=== PATIENT | male | born 1970 | race Caucasian/White ===

== ENCOUNTER 2016-10-07 13:55 | Emergency (ER) | payer BC ==
--- NOTE | 2016-10-07 15:10 | EDM.PDOC ---
ED HPI GENERAL MEDICAL PROBLEM - General Chief Complaint: ENT Problem Stated Complaint: [id number] SINUS INFECTION Time Seen by Provider: 10/07/16 15:03 Source of Information: Reports: Patient, RN Notes Reviewed - History of Present Illness INITIAL COMMENTS - FREE TEXT/NARRATIVE: patient is a 46-year-old male who comes in today with a fever complaining of sinus pain and pressure over the last 3 days that has gotten worse in nature. He denies cough or congestion he does report having a sore throat as well. He states he believes the fever started yesterday he states his pain is mild and has no exacerbating or remitting factors Onset: Gradual Duration: Day(s): Location: Reports: Face, Radiates to (jaw and pressure under eyes and frontal sinus pressure) Quality: Reports: Ache, Dull Severity: Mild Bilateral Face Pain Score (Numeric/FACES): 7 - Related Data Allergies Allergy/AdvReac Type Severity Reaction Status Date / Time clarithromycin [From Biaxin] Allergy Hives Verified 10/07/16 14:35 Penicillins Allergy Hives Verified 10/07/16 14:35 Home Meds: Home Meds Amitriptyline [Elavil] 10 mg PO DAILY 09/15/15 [History] Simvastatin [Simvastatin] 20 mg PO DAILY 09/15/15 [History] Venlafaxine [Effexor] 25 mg PO DAILY 09/15/15 [History] Past Medical History - Past Health History Medical/Surgical History: Denies Medical/Surgical History Social & Family History - Family History Family Medical History: Noncontributory - Tobacco Use Smoking Status *Q: Never Smoker Second Hand Smoke Exposure: No - Caffeine Use Caffeine Use: Reports: Coffee, Soda - Alcohol Use Days Per Week of Alcohol Use: 2 Number of Drinks Per Day: 2 Total Drinks Per Week: 4 - Recreational Drug Use Recreational Drug Use: No ED ROS ENT - Review of Systems Review Of Systems: See Below ED EXAM, ENT - Physical Exam Exam: See Below Exam Limited By: No Limitations General Appearance: Alert, WD/WN, No Apparent Distress Eye Exam: Bilateral Eye: PERRL Ears: Normal External Exam, Normal Canal, Hearing Grossly Normal, Normal TMs Nose: Normal Inspection, Normal Mucousa, No Blood Mouth/Throat: Normal Inspection, Normal Gums, Normal Lips, Normal Teeth, Pharyngeal Erythema. No: Dental Abcess, Dental Pain, Dental Tenderness, Drooling, Muffled Voice, Uvular Deviation, Uvular Edema Head: Atraumatic, Normocephalic, Sinus Tenderness, Other (tenderness over the frontal ethmoid and maxillary sinuses) Neck: Normal Inspection, Supple, Non-Tender, Full Range of Motion Respiratory/Chest: No Respiratory Distress, Lungs Clear, Normal Breath Sounds, No Accessory Muscle Use, Chest Non-Tender Cardiovascular: Normal Peripheral Pulses, Regular Rate, Rhythm, No Edema, No Gallop, No JVD, No Murmur, No Rub Neurological: Alert, Oriented, CN II-XII Intact, Normal Cognition, Normal Gait, Normal Reflexes, No Motor/Sensory Deficits Skin: Warm, Dry, Intact, Normal Color, No Rash Course - Vital Signs Last Recorded V/S: Last Vital Signs Temp 102.3 F H 10/07/16 15:33 Pulse 85 10/07/16 14:37 Resp 21 H 10/07/16 14:37 BP 162/95 H 10/07/16 14:37 Pulse Ox 99 10/07/16 14:37 - Orders/Labs/Meds Orders: Active Orders 24 hr Category Date Time Status CULTURE STREP A CONFIRMATION [RM] Stat Lab 10/07/16 15:08 Results STREP SCRN A RAPID W CULT CONF [RM] Stat Lab 10/07/16 15:08 Results Meds: Medications Discontinued Medications Generic Name Dose Route Start Last Admin Trade Name Arvind PRN Reason Stop Dose Admin Ibuprofen 800 mg 10/07/16 15:29 10/07/16 15:33 Motrin PO 10/07/16 15:30 800 mg ONETIME ONE Administration Departure - Departure Time of Disposition: 15:45 Disposition: Home, Self-Care 01 Condition: good Clinical Impression: Sinusitis Qualifiers: Sinusitis location: maxillary Chronicity: acute Recurrence: not specified as recurrent Qualified Code(s): J01.00 - Acute maxillary sinusitis, unspecified Fever Qualifiers: Fever type: unspecified Qualified Code(s): R50.9 - Fever, unspecified - Discharge Information Instructions: Sinusitis, Adult, [id number], Fever, Adult, [id number] Forms: ED Department Discharge Additional Instructions: Discharge diagnosis Fever Sinusitis Push clear liquids Take antibiotic until gone Use Tylenol Motrin as needed for fever Followup with your primary care provider if not improving in 24-48 hour Return for increased pain nausea vomiting difficulty breathing or swallowing - My Orders Last 24 Hours: My Active Orders 10/07/16 15:08 CULTURE STREP A CONFIRMATION [RM] Stat STREP SCRN A RAPID W CULT CONF [] Stat - Assessment/Plan Last 24 Hours: My Active Orders 10/07/16 15:08 CULTURE STREP A CONFIRMATION [] Stat STREP SCRN A RAPID W CULT CONF [] Stat
[2016-10-07] MEDS ORDERED: Ibuprofen 800 MG Tab PO ONE (15:29)
[2016-10-07 15:52] VITALS: BP 139/84
== END 2016-10-07 15:52 | disposition home or self-care (01) ==
LOC: DL.ED 13:55
DX: J01.00 Acute maxillary sinusitis, unspecified (principal); Z88.1 Allergy status to other antibiotic agents; Z88.0 Allergy status to penicillin; Z79.899 Other long term (current) drug therapy
CPT/HCPCS: 87081; 87430; 99283; A9270

== ENCOUNTER 2017-01-18 10:32 | Emergency (ER) | payer BC ==
--- NOTE | 2017-01-18 10:34 | EDM.PDOC ---
ED HPI GENERAL MEDICAL PROBLEM - General Chief Complaint: General Stated Complaint: COLD Time Seen by Provider: 01/18/17 11:38 Source of Information: Reports: Patient, RN, RN Notes Reviewed History Limitations: Reports: No Limitations - History of Present Illness INITIAL COMMENTS - FREE TEXT/NARRATIVE: Patient states cough/sore throat since the beginning of the week. Possible fever and chills early this week. No recent SOB or chest pain. 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 No sputum production. Location: Reports: Chest Quality: Reports: Ache Severity: Mild Improves with: Reports: None Worsens with: Reports: None Associated Symptoms: Reports: No Other Symptoms Throat Pain Score (Numeric/FACES): 5 - Related Data Allergies Allergy/AdvReac Type Severity Reaction Status Date / Time clarithromycin [From Biaxin] Allergy Hives Verified 01/18/17 10:44 Penicillins Allergy Hives Verified 01/18/17 10:44 Home Meds: Home Meds Amitriptyline [Elavil] 10 mg PO DAILY 09/15/15 [History] Simvastatin [Simvastatin] 20 mg PO DAILY 09/15/15 [History] ClonazePAM [KlonoPIN] 0.5 mg PO DAILY PRN 01/18/17 [History] Escitalopram Oxalate [Escitalopram Oxalate] 20 mg PO DAILY 01/18/17 [History] Past Medical History - Past Health History Medical/Surgical History: Denies Medical/Surgical History Social & Family History - Family History Family Medical History: Noncontributory - Tobacco Use Smoking Status *Q: Never Smoker Second Hand Smoke Exposure: No - Caffeine Use Caffeine Use: Reports: Coffee, Soda - Alcohol Use Days Per Week of Alcohol Use: 2 Number of Drinks Per Day: 2 Total Drinks Per Week: 4 - Recreational Drug Use Recreational Drug Use: No ED ROS GENERAL - Review of Systems Review Of Systems: ROS reveals no pertinent complaints other than HPI. ED EXAM, GENERAL - Physical Exam Exam: See Below Exam Limited By: No Limitations General Appearance: Alert, WD/WN, No Apparent Distress Eye Exam: Bilateral Eye: Normal Inspection Ears: Normal External Exam, Normal Canal, Hearing Grossly Normal, Normal TMs Nose: Normal Inspection, Normal Mucosa, No Blood Throat/Mouth: Normal Inspection, Normal Lips, Normal Teeth, Normal Gums, Normal Oropharynx, Normal Voice, No Airway Compromise Head: Atraumatic, Normocephalic Neck: Normal Inspection, Supple, Non-Tender, Full Range of Motion Respiratory/Chest: No Respiratory Distress, Lungs Clear, Normal Breath Sounds, No Accessory Muscle Use, Chest Non-Tender Cardiovascular: Normal Peripheral Pulses, Regular Rate, Rhythm, No Edema, No Gallop, No JVD, No Murmur, No Rub GI/Abdominal: Normal Bowel Sounds, Soft, Non-Tender, No Organomegaly, No Distention, No Abnormal Bruit, No Mass (Male) Exam: Deferred Rectal (Males) Exam: Deferred Back Exam: Normal Inspection, Full Range of Motion, NT Extremities: Normal Inspection, Normal Range of Motion, Non-Tender, Normal Capillary Refill, No Pedal Edema Neurological: Alert, Oriented, CN II-XII Intact, Normal Cognition, Normal Gait, Normal Reflexes, No Motor/Sensory Deficits Psychiatric: Normal Affect, Normal Mood Skin Exam: Warm, Dry, Intact, Normal Color, No Rash Lymphatic: Other (+2 cervical submandibular) Course - Vital Signs Last Recorded V/S: Last Vital Signs Temp 98.4 F 01/18/17 10:39 Pulse 112 H 01/18/17 10:39 Resp 16 01/18/17 10:39 BP 140/96 H 01/18/17 10:39 Pulse Ox 96 01/18/17 10:39 - Orders/Labs/Meds Orders: Active Orders 24 hr Category Date Time Status CULTURE STREP A CONFIRMATION [RM] Stat Lab 01/18/17 11:40 Results STREP SCRN A RAPID W CULT CONF [] Stat Lab 01/18/17 11:40 Results Rapid strep: Negative. Departure - Departure Time of Disposition: 11:57 Disposition: Home, Self-Care 01 Condition: Good Clinical Impression: Upper respiratory infection Qualifiers: URI type: unspecified viral URI Qualified Code(s): J06.9 - Acute upper respiratory infection, unspecified - Discharge Information Instructions: Upper Respiratory Infection, Adult, [id number] Forms: ED Department Discharge Additional Instructions: Use over the counter decongestant/cough combination of choice, as directed on packaging. Follow up in the clinic this week if fever and chills, or no improvement. Drink plenty of fluids. Rest. - My Orders Last 24 Hours: My Active Orders 01/18/17 11:40 CULTURE STREP A CONFIRMATION [RM] Stat STREP SCRN A RAPID W CULT CONF [RM] Stat - Assessment/Plan Last 24 Hours: My Active Orders 01/18/17 11:40 CULTURE STREP A CONFIRMATION [RM] Stat STREP SCRN A RAPID W CULT CONF [RM] Stat
[2017-01-18 10:44] VITALS: BP 140/96
== END 2017-01-18 12:13 | disposition home or self-care (01) ==
LOC: DL.ED 10:32
DX: J06.9 Acute upper respiratory infection, unspecified (principal); Z79.899 Other long term (current) drug therapy; Z88.0 Allergy status to penicillin; Z88.1 Allergy status to other antibiotic agents
CPT/HCPCS: 87081; 87430; 99284

== ENCOUNTER 2017-05-31 13:00 | Emergency (ER) | payer BC ==
[2017-05-31 15:23] VITALS: BP 145/97
--- NOTE | 2017-05-31 20:25 | EDM.PDOC ---
Scribed by Brandi Moreno 05/31/17 1541 for Chela Franco NP ED HPI GENERAL MEDICAL PROBLEM - General Chief Complaint: ENT Problem Stated Complaint: [id number] SORE THROAT Time Seen by Provider: 05/31/17 15:30 Source of Information: Reports: Patient, RN, RN Notes Reviewed History Limitations: Reports: No Limitations - History of Present Illness INITIAL COMMENTS - FREE TEXT/NARRATIVE: Patient presented to ER with complaint of sore throat. It has been sore X1 week- -Thursday. He has no fever, chills, nausea, vomiting, diarrhea, joint and body aches, chest pain, shortness of breath, cough and congestion. Duration: Getting Worse Location: Reports: Other (throat) Quality: Reports: Ache Severity: Moderate Improves with: Reports: None Worsens with: Reports: None Associated Symptoms: Reports: No Other Symptoms Throat Pain Score (Numeric/FACES): 6 - Related Data Allergies Allergy/AdvReac Type Severity Reaction Status Date / Time clarithromycin [From Biaxin] Allergy Hives Verified 05/31/17 14:09 Penicillins Allergy Hives Verified 05/31/17 14:09 Home Meds: Home Meds Amitriptyline [Elavil] 75 mg PO DAILY 09/15/15 [History] Simvastatin [Simvastatin] 20 mg PO DAILY 09/15/15 [History] ClonazePAM [KlonoPIN] 0.5 mg PO DAILY PRN 01/18/17 [History] Escitalopram Oxalate [Escitalopram Oxalate] 20 mg PO DAILY 01/18/17 [History] Acetaminophen [Tylenol Extra Strength] 1,000 mg PO ASDIRECTED PRN 05/31/17 [ History] Budesonide/Formoterol Fumarate [Symbicort 80-4.5 Mcg Inhaler] 2 puff INH BID [History] Tadalafil [Cialis] 5 mg PO DAILY 05/31/17 [History] Past Medical History - Past Health History Medical/Surgical History: Denies Medical/Surgical History HEENT History: Reports: Impaired Vision Other HEENT History: wears glasses Cardiovascular History: Reports: None, High Cholesterol Respiratory History: Reports: Asthma Gastrointestinal History: Reports: None Genitourinary History: Reports: None Musculoskeletal History: Reports: Back Pain, Chronic Neurological History: Reports: None Psychiatric History: Reports: Anxiety, Depression Endocrine/Metabolic History: Reports: None Hematologic History: Reports: None Immunologic History: Reports: None Oncologic (Cancer) History: Reports: None Dermatologic History: Reports: None - Infectious Disease History Infectious Disease History: Reports: Chicken Pox Social & Family History - Family History Family Medical History: Noncontributory - Tobacco Use Smoking Status *Q: Former Smoker Years of Tobacco use: 20 Packs/Tins Daily: 1 Used Tobacco, but Quit: Yes Month Tobacco Last Used: July 2014 Second Hand Smoke Exposure: No - Caffeine Use Caffeine Use: Reports: Soda - Alcohol Use Days Per Week of Alcohol Use: 2 Number of Drinks Per Day: 2 Total Drinks Per Week: 4 - Recreational Drug Use Recreational Drug Use: No ED ROS ENT - Review of Systems Review Of Systems: ROS reveals no pertinent complaints other than HPI. ED EXAM, ENT - Physical Exam Exam: See Below Exam Limited By: No Limitations General Appearance: Alert, WD/WN, No Apparent Distress Eye Exam: Bilateral Eye: Normal Inspection Ears: Normal External Exam, Normal Canal, Hearing Grossly Normal, Normal TMs Nose: Normal Inspection, Normal Mucousa, No Blood Mouth/Throat: Other (Tonsils +3 erythema) Head: Atraumatic, Normocephalic Neck: Normal Inspection, Supple, Non-Tender, Full Range of Motion Respiratory/Chest: No Respiratory Distress, Lungs Clear, Normal Breath Sounds, No Accessory Muscle Use, Chest Non-Tender Cardiovascular: Normal Peripheral Pulses, Regular Rate, Rhythm, No Edema, No Gallop, No JVD, No Murmur, No Rub GI/Abdominal: Normal Bowel Sounds, Soft, Non-Tender, No Organomegaly, No Distention, No Abnormal Bruit, No Mass (Male) Exam: Deferred Rectal (Males) Exam: Deferred Back: Normal Inspection, Full Range of Motion Extremities: Normal Inspection, Normal Range of Motion, Non-Tender, No Pedal Edema, Normal Capillary Refill Neurological: Alert, Oriented, CN II-XII Intact, Normal Cognition, Normal Gait, Normal Reflexes, No Motor/Sensory Deficits Psychiatric: Normal Affect, Normal Mood Skin: Warm, Dry, Intact, Normal Color, No Rash Lymphatic: Other (+2 anterior cervical.) Course - Vital Signs Last Recorded V/S: Last Vital Signs Temp 36.9 C 05/31/17 15:22 Pulse 95 05/31/17 15:22 Resp 16 05/31/17 15:22 BP 145/97 H 05/31/17 15:22 Pulse Ox 97 05/31/17 15:22 - Orders/Labs/Meds Labs: Rapid strep: Positive. Departure - Departure Time of Disposition: 15:40 Disposition: Home, Self-Care 01 Condition: Fair Clinical Impression: Strep throat - Discharge Information Instructions: Strep Throat, [id number] Forms: ED Department Discharge Additional Instructions: Drink plenty of fluids RX: azithromycin Tylenol or ibuprofen for fever/pain I have read and agree with the documentation that has been completed regarding this visit. By signing this record, I attest that the documentation was completed in my physical presence and is an accurate record of the encounter.
== END 2017-05-31 15:56 | disposition home or self-care (01) ==
LOC: DL.ED 13:00
DX: J02.0 Streptococcal pharyngitis (principal); E78.00 Pure hypercholesterolemia, unspecified; J45.909 Unspecified asthma, uncomplicated; F32.9 Major depressive disorder, single episode, unspecified; Z87.891 Personal history of nicotine dependence; Z79.899 Other long term (current) drug therapy; Z88.0 Allergy status to penicillin; Z88.1 Allergy status to other antibiotic agents
CPT/HCPCS: 87430; 99283

== ENCOUNTER 2019-07-03 18:58 | Emergency (ER) | payer BC ==
[2019-07-03] MEDS ORDERED: Acetaminophen/oxyCODONE 325-5 MG Tab PO ONE (18:59)
[2019-07-03] MEDS ORDERED: Ondansetron 4 MG Tab.DIS PO ONE (18:59)
[2019-07-03 20:06] VITALS: BP 178/103; PULSE 109
[2019-07-03 22:03] LABS: ANION GAP 12.6
[2019-07-03] MEDS ORDERED: Tamsulosin 0.4 MG Cap.ER PO ONE (22:50)
[2019-07-03] MEDS ORDERED: Sodium Chloride 0.9% 1,000 ML IV ONE (22:50)
[2019-07-03] MEDS ORDERED: HYDROmorphone 1 MG/ML Syringe IVPUSH ONE ×2 (22:50→23:38)
[2019-07-03] MEDS ORDERED: Ondansetron 4 MG/2 ML SDV IVPUSH ONE (22:51)
[2019-07-03] MEDS ORDERED: Ketorolac 30 MG/ML SDV IVPUSH ONE (23:24)
[2019-07-04] MEDS ORDERED: Acetaminophen/oxyCODONE 325-5 MG Tab ONE (00:25)
[2019-07-04] MEDS ORDERED: Ondansetron 4 MG Tab.DIS ONE (00:25)
--- NOTE | 2019-07-04 00:48 | EDM.PDOC ---
"ED HPI GENERAL MEDICAL PROBLEM - General Chief Complaint: Flank Pain Stated Complaint: KIDNEY PAIN Time Seen by Provider: 07/03/19 20:15 Source of Information: Reports: Patient, RN Notes Reviewed History Limitations: Reports: No Limitations - History of Present Illness INITIAL COMMENTS - FREE TEXT/NARRATIVE: c/o severe left flank pain, No vomiting. Was seen in clinic . Renal US done, to rule out kidney stone, none seen. Pain x 2 weeks, worse tonight. Urology appointment scheduled on Thursday. No fever or chills. No prior hx orf renal stones. Left Flank Pain Score (Numeric/FACES): 8 - Related Data Allergies Allergy/AdvReac Type Severity Reaction Status Date / Time clarithromycin [From Biaxin] Allergy Hives Verified 07/03/19 20:06 Penicillins Allergy Hives Verified 07/03/19 20:06 Home Meds: Home Meds Amitriptyline [Elavil] 75 mg PO DAILY 09/15/15 [History] Simvastatin 20 mg PO DAILY 09/15/15 [History] ClonazePAM [KlonoPIN] 0.5 mg PO DAILY PRN 01/18/17 [History] Escitalopram Oxalate 20 mg PO DAILY 01/18/17 [History] Acetaminophen [Tylenol Extra Strength] 1,000 mg PO ASDIRECTED PRN 05/31/17 [ History] Budesonide/Formoterol Fumarate [Symbicort 80-4.5 MCG] 2 puff INH BID 05/31/17 [ History] Tadalafil [Cialis] 5 mg PO DAILY 05/31/17 [History] Past Medical History - Past Health History Medical/Surgical History: Denies Medical/Surgical History HEENT History: Reports: Impaired Vision Other HEENT History: wears glasses Cardiovascular History: Reports: High Cholesterol Respiratory History: Reports: Asthma Gastrointestinal History: Reports: None Genitourinary History: Reports: None Musculoskeletal History: Reports: Back Pain, Chronic Neurological History: Reports: None Psychiatric History: Reports: Anxiety, Depression Endocrine/Metabolic History: Reports: None Hematologic History: Reports: None Immunologic History: Reports: None Oncologic (Cancer) History: Reports: None Dermatologic History: Reports: None - Infectious Disease History Infectious Disease History: Reports: Chicken Pox Social & Family History - Family History Family Medical History: Noncontributory - Tobacco Use Smoking Status *Q: Former Smoker Used Tobacco, but Quit: Yes Month/Year Tobacco Last Used: 2012 - Caffeine Use Caffeine Use: Reports: Soda - Recreational Drug Use Recreational Drug Use: No ED ROS GENERAL - Review of Systems Review Of Systems: Comprehensive ROS is negative, except as noted in HPI. ED EXAM, RENAL/ - Physical Exam Exam: See Below Exam Limited By: No Limitations General Appearance: Alert, Moderate Distress Eye Exam: Bilateral Eye: EOMI Ears: Normal External Exam Nose: Normal Inspection Throat/Mouth: Normal Inspection Head: Atraumatic, Normocephalic Neck: Normal Inspection Respiratory/Chest: Lungs Clear, Normal Breath Sounds Cardiovascular: Regular Rate, Rhythm GI/Abdominal: Soft, Non-Tender Back Exam: CVA Tenderness (L) (mild) Extremities: Normal Inspection Neurological: Alert, Oriented, Normal Cognition, Normal Gait Psychiatric: Normal Affect Skin Exam: Warm, Dry, Intact, Normal Color Course - Vital Signs Last Recorded V/S: Last Vital Signs Temp 97.8 F 07/03/19 20:01 Pulse 109 H 07/03/19 20:01 Resp 18 07/03/19 20:01 BP 178/103 H 07/03/19 20:01 Pulse Ox 98 07/03/19 20:01 - Orders/Labs/Meds Labs: Laboratory Tests 07/03/19 07/03/19 07/03/19 Range/Units 20:10 20:10 21:30 WBC 11.5 H (5.0-10.0) 10^3/uL RBC 4.66 (4.6-6.2) 10^6/uL Hgb 15.2 (14.0-18.0) g/dL Hct 43.8 (40.0-54.0) % MCV 94.0 (80-100) fL MCH 32.6 (27.0-34.0) pg MCHC 34.7 (33.0-35.0) g/dL Plt Count 311 (150-450) 10^3/uL Neut % (Auto) 82.2 H (42.2-75.2) % Lymph % (Auto) 9.7 L (20.5-50.1) % [place] % (Auto) 7.0 (2-8) % Eos % (Auto) 0.8 L (1.0-3.0) % Baso % (Auto) 0.3 (0.0-1.0) % Sodium (135-145) mmol/L Potassium (3.6-5.0) mmol/L Chloride (101-111) mmol/L Carbon Dioxide (21.0-31.0) mmol/L Anion Gap BUN (7-18) mg/dL Creatinine (0.6-1.3) mg/dL Est Cr Clr Drug Dosing mL/min Estimated GFR (MDRD) BUN/Creatinine Ratio Glucose (74-105) mg/dL Calcium (8.4-10.2) mg/dl Total Bilirubin (0.2-1.0) mg/dL AST (10-42) IU/L ALT (10-60) IU/L Alkaline Phosphatase (42-121) IU/L Total Protein (6.7-8.2) g/dl Albumin (3.2-5.5) g/dl Globulin Albumin/Globulin Ratio Urine Color Yellow (YELLOW) Urine Appearance Clear (CLEAR) Urine pH 7.5 (5.0-9.0) Ur Specific [place] 1.020 (1.005-1.030) Urine Protein Negative (NEGATIVE) Urine Glucose (UA) Negative (NEGATIVE) Urine Ketones Negative (NEGATIVE) Urine Occult Blood Trace-intact H (NEGATIVE) Urine Nitrite Negative (NEGATIVE) Urine Bilirubin Negative (NEGATIVE) Urine Urobilinogen 0.2 (0.2-1.0) mg/dL Ur Leukocyte Esterase Negative (NEGATIVE) Urine RBC 0-5 /HPF Urine WBC 0-5 (0-5/HPF) /HPF Ur Epithelial Cells Few (NOT SEEN) /HPF Urine Bacteria Few (0-FEW/HPF) /HPF Urine Mucus Few H (NOT SEEN) /LPF Urine Yeast Few H (NOT SEEN) /HPF Urine Opiates Screen Negative (NEGATIVE) Ur Oxycodone Screen Negative (NEGATIVE) Urine Methadone Screen Negative (NEGATIVE) Ur Barbiturates Screen Negative (NEGATIVE) U Tricyclic Antidepress Positive H (NEGATIVE) Ur Phencyclidine Scrn Negative (NEGATIVE) Ur Amphetamine Screen Negative (NEGATIVE) U Methamphetamines Scrn Negative (NEGATIVE) Urine MDMA Screen Negative (NEGATIVE) U Benzodiazepines Scrn Negative (NEGATIVE) Urine Cocaine Screen Negative (NEGATIVE) U Marijuana (THC) Screen Negative (NEGATIVE) 07/03/19 Range/Units 21:30 WBC (5.0-10.0) 10^3/uL RBC (4.6-6.2) 10^6/uL Hgb (14.0-18.0) g/dL Hct (40.0-54.0) % MCV (80-100) fL MCH (27.0-34.0) pg MCHC (33.0-35.0) g/dL Plt Count (150-450) 10^3/uL Neut % (Auto) (42.2-75.2) % Lymph % (Auto) (20.5-50.1) % [place] % (Auto) (2-8) % Eos % (Auto) (1.0-3.0) % Baso % (Auto) (0.0-1.0) % Sodium 136 (135-145) mmol/L Potassium 3.6 (3.6-5.0) mmol/L Chloride 103 (101-111) mmol/L Carbon Dioxide 24.0 (21.0-31.0) mmol/L Anion Gap 12.6 BUN 14 (7-18) mg/dL Creatinine 1.9 H (0.6-1.3) mg/dL Est Cr Clr Drug Dosing 51.19 mL/min Estimated GFR (MDRD) 38 BUN/Creatinine Ratio 7.36 Glucose 108 H (74-105) mg/dL Calcium 9.0 (8.4-10.2) mg/dl Total Bilirubin 0.6 (0.2-1.0) mg/dL AST 34 (10-42) IU/L ALT 68 H (10-60) IU/L Alkaline Phosphatase 78 (42-121) IU/L Total Protein 7.8 (6.7-8.2) g/dl Albumin 4.7 (3.2-5.5) g/dl Globulin 3.1 Albumin/Globulin Ratio 1.52 Urine Color (YELLOW) Urine Appearance (CLEAR) Urine pH (5.0-9.0) Ur Specific [place] (1.005-1.030) Urine Protein (NEGATIVE) Urine Glucose (UA) (NEGATIVE) Urine Ketones (NEGATIVE) Urine Occult Blood (NEGATIVE) Urine Nitrite (NEGATIVE) Urine Bilirubin (NEGATIVE) Urine Urobilinogen (0.2-1.0) mg/dL Ur Leukocyte Esterase (NEGATIVE) Urine RBC /HPF Urine WBC (0-5/HPF) /HPF Ur Epithelial Cells (NOT SEEN) /HPF Urine Bacteria (0-FEW/HPF) /HPF Urine Mucus (NOT SEEN) /LPF Urine Yeast (NOT SEEN) /HPF Urine Opiates Screen (NEGATIVE) Ur Oxycodone Screen (NEGATIVE) Urine Methadone Screen (NEGATIVE) Ur Barbiturates Screen (NEGATIVE) U Tricyclic Antidepress (NEGATIVE) Ur Phencyclidine Scrn (NEGATIVE) Ur Amphetamine Screen (NEGATIVE) U Methamphetamines Scrn (NEGATIVE) Urine MDMA Screen (NEGATIVE) U Benzodiazepines Scrn (NEGATIVE) Urine Cocaine Screen (NEGATIVE) U Marijuana (THC) Screen (NEGATIVE) Meds: Medications Discontinued Medications Generic Name Dose Route Start Last Admin Trade Name Freq PRN Reason Stop Dose Admin Hydromorphone HCl 1 mg 07/03/19 22:50 07/03/19 22:59 Dilaudid IVPUSH 07/03/19 22:51 1 mg ONETIME ONE Administration Hydromorphone HCl 1 mg 07/03/19 23:38 07/03/19 23:46 Dilaudid IVPUSH 07/03/19 23:39 1 mg ONETIME ONE Administration Sodium Chloride 1,000 mls @ 999 mls/hr 07/03/19 22:50 07/03/19 22:56 Normal Saline IV 07/03/19 23:50 999 mls/hr .BOLUS ONE Administration Ketorolac Tromethamine 30 mg 07/03/19 23:24 07/03/19 23:30 Toradol IVPUSH 07/03/19 23:25 30 mg ONETIME ONE Administration Ondansetron HCl 4 mg 07/03/19 22:51 07/03/19 22:56 Zofran IVPUSH 07/03/19 22:52 4 mg ONETIME ONE Administration Ondansetron HCl Confirm 07/04/19 00:25 07/04/19 00:42 Zofran Odt Administered 07/04/19 00:26 Not Given Dose 8 mg .ROUTE .STK-MED ONE Oxycodone/Acetaminophen Confirm 07/04/19 00:25 07/04/19 00:42 Percocet 325-5 Mg Administered 07/04/19 00:26 Not Given Dose 2 tab .ROUTE .STK-MED ONE Tamsulosin HCl 0.4 mg 07/03/19 22:50 07/03/19 23:03 Flomax PO 07/03/19 22:51 0.4 mg ONETIME ONE Administration - Radiology Interpretation Free Text/Narrative:: [facility] [place] [facility] Final Radiology Report Call: [phone] assistance Online chat: [email or web address] Name: EMILIANO LEON Age: 49Years M Date: 07/03/2019 SSN: -- : [id number] Study: CT ABDOMEN/PELVIS WO Requesting Physician: CLEVELAND UGALDE Images: [id number] Addl Studies: Provided Clinical History: Contrast: Without Contrast Medium: Contrast Amount: Contrast Method: Page 1 of 2 PROCEDURE INFORMATION: Exam: CT Abdomen And Pelvis Without Contrast Exam date and time: 07/03/2019 10:23 PM Age: 49 years old Clinical indication: Other: Left flank pain TECHNIQUE: Imaging protocol: Computed tomography of the abdomen and pelvis without contrast. Radiation optimization: All CT scans at this facility use at least one of these dose optimization techniques: automated exposure control; mA and/or kV adjustment per patient size (includes targeted exams where dose is matched to clinical indication); or iterative reconstruction. COMPARISON: No relevant prior studies available. FINDINGS: Lungs: Strandy opacities are seen in the posterior costophrenic recesses bilaterally and left lung base likely representing atelectasis versus parenchymal or pleural scarring. Liver: Normal. No mass. Gallbladder and bile ducts: Normal. No calcified stones. No ductal dilation. Pancreas: Normal. No ductal dilation. Spleen: Normal. No splenomegaly. Adrenals: Normal. No mass. Kidneys and ureters: Strandy opacities are seen in the perinephric fascia bilaterally, left more prominent than right. Left-sided inflammatory changes cannot be entirely excluded. There is mild hydronephrosis and hydroureter seen on the left. Hazy opacities surrounding the mildly dilated left ureter. There is a partially obstructing 3 x 3.8 mm distal left ureteral calculus near the level of the ureterovesical junction. Stomach and bowel: Unremarkable. No obstruction. No mucosal thickening. Appendix: The appendix is visualized and is normal in configuration. EMILIANO LEON | Final Radiology Report CONFIDENTIALITY STATEMENT This report is intended only for use by the referring physician, and only in accordance with law. If you received this in error, call [phone]. Page 2 of 2 Intraperitoneal space: Unremarkable. No free air. No significant fluid collection. Vasculature: Unremarkable. No abdominal aortic aneurysm. Lymph nodes: There are multiple retroperitoneal lymph nodes seen that are below CT criteria for lymphadenopathy. These could represent mildly reactive lymph nodes however. Bladder: There is some bladder wall thickening seen. Some subtle haziness seen along the serosal margin of the bladder on the left possibly representing mild inflammatory changes. The bladder is nondistended however. Reproductive: Unremarkable as visualized. Bones/joints: Unremarkable. No acute fracture. Soft tissues: Unremarkable. IMPRESSION: Partially obstructing 3 x 3.8 mm distal left ureteral calculus near the level of the ureterovesical junction. Thank you for allowing us to participate in the care of your patient. Dictated and Authenticated by: Rolando Leo MD - Re-Assessments/Exams Free Text/Narrative Re-Assessment/Exam: 07/04/19 04:[address] reviewed with patient. Improved pain control following 2nd dose of Dilaudid, Resting comfortably, No vomiting. Departure - Departure Time of Disposition: 00:44 Disposition: Home, Self-Care 01 Condition: Good Clinical Impression: Renal calculus - Discharge Information *PRESCRIPTION DRUG MONITORING PROGRAM REVIEWED*: No *COPY OF PRESCRIPTION DRUG MONITORING REPORT IN PATIENT UMBERTO: No Instructions: Kidney Stones, [id number] Referrals: Jesus Alberto Sanchez MD [Primary Care Provider] - Forms: ED Department Discharge Additional Instructions: flomax 0.4mg one daily zofran 4mg ODT one every 6 hours as needed for nausea percocet 5/325 one every 6 hours as needed for severe pain #2 toradol 10mg one every 8 hours as needed for pain push fluids follow with urology as scheduled on Thursday Sepsis Event Note - Evaluation Sepsis Screening Result: No Definite Risk - Focused Exam Vital Signs: Vital Signs Temp Pulse Resp BP Pulse Ox 07/03/19 20:01 97.8 F 109 H 18 178/103 H 98 Date Exam was Performed: 07/04/19 Time Exam was Performed: 04:29"
== END 2019-07-04 00:55 | disposition home or self-care (01) ==
LOC: DL.ED 18:58
DX: N13.2 Hydronephrosis with renal and ureteral calculous obstruction (principal); E78.00 Pure hypercholesterolemia, unspecified; J45.909 Unspecified asthma, uncomplicated; F41.9 Anxiety disorder, unspecified; F32.9 Major depressive disorder, single episode, unspecified; Z87.891 Personal history of nicotine dependence; Z88.0 Allergy status to penicillin; Z88.1 Allergy status to other antibiotic agents; Z79.899 Other long term (current) drug therapy
CPT/HCPCS: 36415; 74176; 80053; 80305; 81001; 85025; 96361; 96374; 96375; 96376; 99284; A9270; J1170; J1885; J2405; J7030